=== PATIENT | male | born 1950 | race Caucasian/White ===

== ENCOUNTER 2021-04-03 16:18 | Emergency (ER) | payer OTHER ==
[~2021-04-03] VITALS: Ht 177.8 cm; Wt 113.4 kg
[~2021-04-03 16:18] MED LIST: COZAAR100 MG; HYDROCHLOROTHIA25 MG; METFORMIN HCL750 MG; NORVASC10 MG
== END 2021-04-03 17:38 | disposition home or self-care (01) ==
LOC: ER 16:18
DX: S61.451A Open bite of right hand, initial encounter (principal); W54.0XXA Bitten by dog, initial encounter; Y93.89 Activity, other specified; Y92.59 Other trade areas as the place of occurrence of the external cause; Y99.8 Other external cause status